=== PATIENT | male | born 1930 | race Hispanic/Latino ===

== ENCOUNTER 2017-10-03 12:32 | Emergency (ER) | payer OTHER ==
[~2017-10-03] VITALS: Ht 165.1 cm; Wt 72.6 kg
--- NOTE | 2017-10-03 15:02 | ED NEURO DEFICIT/STROKE ---
History of Present Illness General Chief Complaint: General Adult Stated Complaint: LEFT SIDE NUMBNESS HX OF STROKE X4 MONTHS AGO Source: patient, family, old records Exam Limitations: no limitations Allergies Coded Allergies: vancomycin (FLUSHING AND SWELLING 10/03/17) Reconcile Medications Atorvastatin Calcium 40 MG TABLET 1 TAB PO DAILY CHOLESTEROL (Reported) Bimatoprost (Lumigan) 0.01 % DROPS 1 GTT OU QPM BOTH EYES (Reported) Carvedilol 6.25 MG TABLET 1 TAB PO BID HEART/BP (Reported) Clopidogrel Bisulfate (Clopidogrel) 75 MG TABLET 1 TAB PO DAILY BLOOD THINNER (Reported) Dextran 70/Hypromellose (Artificial Tears) 1 EACH DROPERETTE 1 DROP OU AD PRN EYE LUBRICATION - BOTH EYES (Reported) Escitalopram Oxalate 10 MG TABLET 1 TAB PO DAILY MENTAL HEALTH (Reported) Famotidine (Pepcid AC) (Unknown Strength) TABLET (Unknown Dose) PO AD PRN GI (Reported) Multivit-Min/FA/Lycopen/Lutein (Centrum Silver Tablet) 0.4 MG-300 MCG-250 MCG TABLET 1 TAB PO DAILY SUPPLEMENT (Reported) Clifton-3 Fatty Acids (Clifton-3) (Unknown Strength) CAPSULE (Unknown Dose) PO DAILY SUPPLEMENT (Reported) Thiamine HCl (B-1) 100 MG TABLET 1 TAB PO DAILY SUPPLEMENT (Reported) Ubidecarenone (Co Q-10) (Unknown Strength) CAPSULE (Unknown Dose) PO DAILY SUPPLEMENT (Reported) Triage Note: PT STATES HE IS HAVING LEFT SIDED NUMBNESS FACE,NOSE,EAR LEG AND ARM. PT STATES HE IS ALSO HAVING BACK PAIN. PT STATES THIS ALL BEGAN ABOUT 4 WEEKS AGO. PT STATES HE JUST THOUGHT IT WOULD GO AWAY AND IT HASN'T YET. PT STATES THE NUMBNESS IS GETTING WORSE AND HE IS HAVING DIFFICULY WALKING. PT HAD [address] SCANS OVER THE PAST FEW WEEKS. PT HAD CT OF CHEST ON FRIDAY/. Triage Nurses Notes Reviewed? yes Onset: Gradual Duration: week(s): (4 months), changing over time, continues in ED Timing: multiple episodes today Severity: mild, moderate Altered Sensations: LUE, LLE, left facial Vision Problem? No Glaucoma? No Impaired Ability: walks without difficulty Baseline: alert, oriented x 3 Associated Symptoms: paresthesia HPI: 87 year old male hx of cva 4 months ago presents for eval of multiple complaints , he reports that since effie stroke he has had left sided weakness and left sided numbness/tinlgin that seems to be getting worse. he has been evaluated on multiple occasions for this with 2 head cts over thepast 2 months that did not show and new findings. he has also seen his pcp and neuro. he is aso reporting a remote hx of prostate ca and has been having left sided low back pain and left flank pain that radiates into his testccles for the past few weeks. no trauma. pain seems to be worse with movement. no meds for pain. currently 12/30. no urinary symptoms, fever, n/v, chest pain, sob, rash or any other symptoms. he has been evalauted by urology a few weeks ago for this and has another appt next week. mentak status is at baseline per family who is at bedside. (Irwin Mendiola) Vital Signs & Intake/Output Vital Signs & Intake/Output Vital Signs Date Time Temp Pulse Resp B/P B/P Pulse O2 O2 Flow FiO2 Mean Ox Delivery Rate 10/03 1809 76 18 150/87 96 Room Air 10/03 1305 97.2 60 16 119/71 96 Room Air ED Intake and Output 10/04 0000 10/03 1200 Intake Total Output Total 300 Balance -300 Output, Urine 300 Patient 160 lb Weight Weight Reported by Patient Measurement Method (Erica VELZE,Servando Moreno) Past History Travel History Traveled to [place] past 21 day No Medical History Any Pertinent Medical History? see below for history Neurological: CVA Cardiovascular: D-FIBULATOR/PACEMAKER BRADICARDIA Influenza Vaccine: 06/22/11 Surgical History Surgical History: none Psychosocial History Who do you live with Spouse What is your primary language Russian Tobacco Use: Quit >30 days ago ETOH Use: occasional use Illicit Drug Use: denies illicit drug use Family History Hx Contributory? No (Irwin Mendiola) Review of Systems Review of Systems Constitutional: Reports: no symptoms. EENTM: Reports: no symptoms. Respiratory: Reports: no symptoms. Cardiovascular: Reports: no symptoms. GI: Reports: abdominal pain. Genitourinary: Reports: no symptoms. Musculoskeletal: Reports: see HPI, back pain. Skin: Reports: no symptoms. Neurological/Psychological: Reports: numbness, paresthesia, pre-existing deficit, tingling, weakness. Hematologic/Endocrine: Reports: no symptoms. Immunologic/Allergic: Reports: no symptoms. All Other Systems: Reviewed and Negative (Irwin Mendiola) Physical Exam Physical Exam General Appearance: well developed/nourished, no apparent distress, alert, awake Head: atraumatic, normal appearance Eyes: Bilateral: normal appearance, PERRL, EOMI. Ears, Nose, Throat: normal ENT inspection, moist mucous membrane, hearing grossly normal Neck: normal inspection, supple, full range of motion Respiratory: normal breath sounds, chest non-tender, no respiratory distress, lungs clear Cardiovascular: regular rate/rhythm, normal peripheral pulses Peripheral Pulses: 2+ radial (R), 2+ radial (L) Gastrointestinal: normal bowel sounds, soft, no organomegaly, tenderness (left flank, llq) Back: normal inspection, normal range of motion, no vertebral tenderness, left lumbar paraspinous muscles tender to palpation no cvat Extremities: normal range of motion, pt is moving all extremities equally. strength 5/5 bilaterally. Psychiatric: awake, alert, oriented x 3 Cranial Nerves: normal hearing, normal speech, PERRL Coordination/Gait: normal finger to nose, normal gait Motor/Sensory: no motor/sensory deficits, sensory deficets are not appearant on exam. pt able to distinguish sharp/dull, Reflexes: 1+: knee (R), knee (L). Skin: intact, normal color, warm/dry Comments: male genitals: No lesions or swelling. no hernias. testicles tedner to palpation bilaterallty,. Core Measures CVA/TIA Diagnosis: No Sepsis Present: No Sepsis Focused Exam Completed? No (Irwin Mendiola) Progress Differential Diagnosis: Maldonado's Palsy, electrolyte imbalance, intracranial Hem., intracranial mass/tumor, migraine ESPINO, stroke, subarachnoid Hem., malignancy, kidney stones, diverticulitis Diagnostic Imaging: Viewed by Me: CT Scan, Ultrasound. Discussed w/RAD: CT Scan, Ultrasound. Radiology Impression: PATIENT: SCOTTY CADE PRESENT AGE: 87 PATIENT ACCOUNT NO: [id number] : 31 LOCATION: [facility] ORDERING PHYSICIAN: Irwin MUELLER SERVICE DATE: 10/03/17 EXAM TYPE: CAT - CT HEAD WO IV CONTRAST EXAMINATION: CT HEAD WITHOUT CONTRAST CLINICAL INFORMATION: History of CVA with left-sided deficits for 4 months. Worsening left-sided weakness and numbness. COMPARISON: CT head 09/01/2017, 07/25/2017. TECHNIQUE: Contiguous axial imaging was performed from the skull base to vertex without intravenous administration of contrast. DLP: 1619.8 mGy-cm FINDINGS: Large geographic infarct with encephalomalacia involving the right parietal lobe similar to prior CT study. No new infarct. No intracranial hemorrhage. There is atrophy with prominence of the ventricles and sulci. There is hypodensity of the periventricular white matter stable since prior study. Vascular wall calcification of the internal carotid arteries at the carotid artery siphon. IMPRESSION: Stable old right MCA territory infarct. No new infarct. No acute intracranial abnormality. DICTATED BY: Santosh Case MD DATE/TIME DICTATED:1837 TEAM ASSEMBLER:LIANET DATE/TIME TRANSCRIBED:10/03/171837 CONFIDENTIAL, DO NOT COPY WITHOUT APPROPRIATE AUTHORIZATION., PATIENT: SCOTTY CADE PRESENT AGE: 87 PATIENT ACCOUNT NO: [id number] : 31 LOCATION: [facility] ORDERING PHYSICIAN: Irwin MUELLER SERVICE DATE: 10/03/17 EXAM TYPE: CAT - CT ABD & PELVIS W IV CONTRAST EXAMINATION: CT ABDOMEN AND PELVIS WITH CONTRAST CLINICAL INFORMATION: Right flank pain radiating into groin and testicles for month. History of prostate cancer. COMPARISON: 01/03/2014 TECHNIQUE: Multidetector volumetric imaging was performed of the abdomen and pelvis following IV administration of 95 mL of Optiray 320 intravenous contrast. Sagittal and coronal reformatted images were obtained on the technologist's workstation. FINDINGS: LUNG BASES: Mild right basilar atelectasis. LIVER, GALLBLADDER, AND BILIARY TREE: There are foci of enhancement seen in the right and left lobe of the liver, reference image 10 series 2. This may be related to altered vascular flow. An enhancing lesion cannot be excluded. The gallbladder is unremarkable with no evidence of radiopaque gallstones, gallbladder wall thickening, or obvious pericholecystic inflammatory changes. PANCREAS: Unremarkable. There is a focus of air projected over the head of the pancreas region, which may be related to duodenal diverticulum. SPLEEN: Unremarkable. ADRENAL GLANDS: Unremarkable. KIDNEYS AND URETERS: The kidneys are normal in size, shape, and attenuation. No hydronephrosis, hydroureter, or calculi seen. No perinephric stranding. BLADDER: Bladder is slightly thick- walled, which may be related to degree of distention, correlate with urinalysis. GASTROINTESTINAL TRACT: Scattered colonic diverticuli. No findings to suggest acute diverticulitis. There are surgical clips present in the upper abdomen. No dilated small bowel loops are seen. The stomach is underdistended. Small hiatal hernia. The appendix is not identified. No pericecal inflammatory changes are seen. ABDOMINAL WALL: Small fat-containing left greater than right inguinal hernia. LYMPH NODES: No pathologically enlarged lymph nodes identified in the abdomen or pelvis. VASCULAR: Normal caliber aorta. PELVIC VISCERA: Prostate measures 3.7 cm, with foci of calcification. OSSEOUS STRUCTURES: Multilevel degenerative changes in the spine. There is anterior vertebral body height loss of L1, which appears chronic. Previous study sagittal reconstructions are not available for direct comparison. Small sclerotic focus in the right ischial tuberosity, stable from previous. No suspicious bony lesions otherwise identified. IMPRESSION: 1. Foci of enhancement in the right and left lobe of the liver, nonspecific, incompletely evaluated. This may be related to altered vascular flow/enhancement, but enhancing lesions cannot be excluded. Further evaluation with MRI can be obtained as clinically warranted. 2. Bilateral kidneys appear unremarkable. No evidence of calculi or hydronephrosis. 3. Bladder is slightly thick-walled, which may be related to underdistention, correlate with urinalysis. 4. No acute findings otherwise identified. 5. Anterior wedging of L1 vertebral body, suspected to be chronic, clinically correlate. 6. Additional findings and details in the body of the report. DICTATED BY: Dom Benito MD DATE/TIME DICTATED:10/03/171833 TEAM ASSEMBLER:LIANET DATE/TIME TRANSCRIBED:10/03/171833, PATIENT: SCOTTY CADE PRESENT AGE: 87 PATIENT ACCOUNT NO: [id number] : 31 LOCATION: [facility] ORDERING PHYSICIAN: Irwin MUELLER SERVICE DATE: 10/03/17 EXAM TYPE: US - US-TESTICULAR EXAMINATION: US SCROTUM CLINICAL INFORMATION: 87-year-old male presented with bilateral testicular tenderness for one month. COMPARISON: None TECHNIQUE: A sonogram of the scrotum was performed assessing soares-scale appearance and color Doppler flow. Spectral analysis and Doppler interrogation was performed. FINDINGS: RIGHT : Right testicle measures 3.5 x 1.7 x 2.0 cm, volume 8.45 mL. Parenchymal echotexture is normal. No focal testicular parenchymal lesions are visualized. Normal symmetric intratesticular flow is visualized. Right epididymal head is normal in size. No right varicocele is seen. Small hydrocele is present. LEFT: Left testicle measures 3.2 x 2.1 x 2.9 cm, volume 13.8 mL. Parenchymal echotexture is normal. No focal testicular parenchymal lesions are visualized. Normal symmetric intratesticular flow is visualized. 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 Left epididymal head is normal in size. No left varicocele is seen. Small hydrocele is present. IMPRESSION: 1. Sonographically unremarkable testicles (the right appears somewhat smaller as compared to the left side, may represent normal variation). 2. Sonographically unremarkable epididymis. 3. Bilateral small hydrocele. DICTATED BY: Paula Mcconnell MD DATE/TIME DICTATED:10/03/171652 TEAM ASSEMBLER:LIANET DATE/ TIME TRANSCRIBED:10/03/171652 CONFIDENTIAL, DO NOT COPY WITHOUT APPROPRIATE AUTHORIZATION. Initial ED EKG: a-v dual paced rhythm with some inhibition Comments: PATIENT: SCOTTY CADE PRESENT AGE: 87 PATIENT ACCOUNT NO: [id number] : 31 LOCATION: [facility] ORDERING PHYSICIAN: Irwin MUELLER SERVICE DATE: 10/03/17 EXAM TYPE: US - US-TESTICULAR EXAMINATION: US SCROTUM CLINICAL INFORMATION: 87-year-old male presented with bilateral testicular tenderness for one month. COMPARISON: None TECHNIQUE: A sonogram of the scrotum was performed assessing soares-scale appearance and color Doppler flow. Spectral analysis and Doppler interrogation was performed. FINDINGS: RIGHT: Right testicle measures 3.5 x 1.7 x 2.0 cm, volume 8.45 mL. Parenchymal echotexture is normal. No focal testicular parenchymal lesions are visualized. Normal symmetric intratesticular flow is visualized. Right epididymal head is normal in size. No right varicocele is seen. Small hydrocele is present. LEFT: Left testicle measures 3.2 x 2.1 x 2.9 cm, volume 13.8 mL. Parenchymal echotexture is normal. No focal testicular parenchymal lesions are visualized. Normal symmetric intratesticular flow is visualized. 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 Left epididymal head is normal in size. No left varicocele is seen. Small hydrocele is present. IMPRESSION: 1. Sonographically unremarkable testicles (the right appears somewhat smaller as compared to the left side, may represent normal variation). 2. Sonographically unremarkable epididymis. 3. Bilateral small hydrocele. DICTATED BY: Paula Mcconnell MD DATE/TIME DICTATED:10/03/171652 TEAM ASSEMBLER:LIANET DATE/TIME TRANSCRIBED:10/03/171652 CONFIDENTIAL, DO NOT COPY WITHOUT APPROPRIATE AUTHORIZATION. (Robby MUELLER,Irwin) Plan of Care: Orders Procedure Date/time Status URINALYSIS 10/03 151 Complete TROPONIN LEVEL 10/03 151 Complete MAGNESIUM 10/03 151 Complete COMPREHENSIVE METABOLIC PANEL 10/03 151 Complete CBC WITHOUT DIFFERENTIAL 10/03 151 Complete EKG 10/03 151 Active Laboratory Tests 10/03/17 1700: Anion Gap 15, Estimated GFR 57 L, BUN/Creatinine Ratio 9.2, Glucose 106 H, Calcium 9.3, Magnesium 2.1, Total Bilirubin 0.8, AST 54, ALT 47, Alkaline Phosphatase 85, Troponin I 0.02, Total Protein 7.5, Albumin 4.6, Globulin 2.9, Albumin/Globulin Ratio 1.6, CBC w Diff NO MAN DIFF REQ, RBC 4.64 L, MCV 95.0 H , MCH 30.9, RDW 13.2, MPV 9.4, Gran % 49.7, Lymphocytes % 21.8, Monocytes % 11.1 H, Eosinophils % 16.8 H, Basophils % 0.6, Absolute Granulocytes 3.2, Absolute Lymphocytes 1.4, Absolute Monocytes 0.7 H, Absolute Eosinophils 1.1, Absolute Basophils 0, PUBS MCHC 32.5 L 10/03/17 1630: Urine Color YEL, Urine Clarity CLEAR, Urine pH 6.5, Ur Specific Norman 1.020, Urine Protein TRACE H, Urine Ketones NEG, Urine Nitrite NEG, Urine Bilirubin NEG, Urine Urobilinogen 1.0, Ur Leukocyte Esterase NEG, Ur Microscopic SEDIMENT EXAMINED, Urine RBC RARE, Urine WBC 1-3 H, Ur Epithelial Cells RARE, Urine Bacteria RARE H, Urine Mucus FEW, Urine Hemoglobin NEG, Urine Glucose NEG pt seen and evalauted,. he has been having left sided weakness and numbness since his stroke that seems to be worsening. no acute changes. he is neurologically intact. strength and sensory supply equal bilaterlly. head ct is unchanged. ct abdomen and pelvis along with testicle u/s wnl. pt is feeling betetr after tylenol. adivsed rest, tylenol and follwo up with specialists neuro and urology and pcp. pt appearsd clincially well adn agrees with the plan. case discussed with dr maldonado he agrees. (Irwin Mendiola) (Erica VELEZ,Servando Moreno) Departure Departure Disposition: HOME OR SELF CARE Condition: Stable Clinical Impression Primary Impression: Numbness and tingling Secondary Impressions: Left flank pain Referrals: Dwight Maldonado DO (PCP/Family) Additional Instructions: Continue to take all medications as directed. Tylenol for pain. Follow-up with your neurologist and primary care doctor as soon as possible. Monitor symptoms return with any concerns. Departure Forms: Customer Survey General Discharge Information (Irwin Mendiola) PA/NEWSPAPER DELIVERY COUNSELOR Co-Sign Statement Statement: ED Attending supervision documentation- [] I saw and evaluated the patient. I have also reviewed all the pertinent lab results and diagnostic results. I agree with the findings and the plan of care as documented in the PA's/NEWSPAPER DELIVERY COUNSELOR's documentation. Patient presents for evaluation of progressive left upper extremity paresthesias and left flank pain that has been present for the past 3-4 weeks. Physical examination reveals a grossly nonfocal neurologic exam and no tenderness over the left flank or abdomen. [] I have reviewed the ED Record and agree with the PA's/NEWSPAPER DELIVERY COUNSELOR's documentation. [] Additions or exceptions (if any) to the PAs/NEWSPAPER DELIVERY COUNSELOR's note and plan are summarized below: [] (Erica VELEZ,Servando Moreno)
[2017-10-03] MEDS ORDERED: CARVEDILOL6.25 M1 PO (16:10)
[2017-10-03] MEDS ORDERED: ESCITALOPRAM OX10 MG PO (16:10)
[2017-10-03] MEDS ORDERED: CLOPIDOGREL75 M1 PO (16:10)
[2017-10-03] MEDS ORDERED: LUMIGAN2.5 ML OU (16:11)
[2017-10-03] MEDS ORDERED: ATORVASTATIN CA40 M1 PO (16:11)
[2017-10-03] MEDS ORDERED: ARTIFICIAL TEA1 EACH OU (16:12)
[2017-10-03] MEDS ORDERED: B-1100 MG PO (16:13)
[2017-10-03] MEDS ORDERED: CO Q-10200 MG PO (16:13)
[2017-10-03] MEDS ORDERED: OMEGA-31000 M1 PO (16:13)
[2017-10-03] MEDS ORDERED: PEPCID AC20 M2 PO (16:14)
[2017-10-03] MEDS ORDERED: CENTRUM SILVER1 EAC3 PO (16:14)
--- NOTE | 2017-10-03 17:06 | ULTRASOUND REPORT ---
EXAMINATION: US SCROTUM CLINICAL INFORMATION: 87-year-old male presented with bilateral testicular tenderness for one month. COMPARISON: None TECHNIQUE: A sonogram of the scrotum was performed assessing soares-scale appearance and color Doppler flow. Spectral analysis and Doppler interrogation was performed. FINDINGS: RIGHT: Right testicle measures 3.5 x 1.7 x 2.0 cm, volume 8.45 mL. Parenchymal echotexture is normal. No focal testicular parenchymal lesions are visualized. Normal symmetric intratesticular flow is visualized. Right epididymal head is normal in size. No right varicocele is seen. Small hydrocele is present. LEFT: Left testicle measures 3.2 x 2.1 x 2.9 cm, volume 13.8 mL. Parenchymal echotexture is normal. No focal testicular parenchymal lesions are visualized. Normal symmetric intratesticular flow is visualized. 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 Left epididymal head is normal in size. No left varicocele is seen. Small hydrocele is present. IMPRESSION: 1. Sonographically unremarkable testicles (the right appears somewhat smaller as compared to the left side, may represent normal variation). 2. Sonographically unremarkable epididymis. 3. Bilateral small hydrocele.
[2017-10-03 17:13] LABS: ABSOLUTE BASOPHIL COUNT 0 /CUMM (0.0-0.2); ABSOLUTE EOSINOPHIL COUNT 1.1 /CUMM (0.0-0.7); ABSOLUTE GRANULOCYTE CT 3.2 /CUMM (1.4-6.5); ABSOLUTE LYMPH COUNT 1.4 /CUMM (1.2-3.4); ABSOLUTE MONOCYTE COUNT 0.7 /CUMM (0.10-0.60); BASOPHIL % 0.6 % (0.0-2.0); GRANULOCYTE % 49.7 % (42.2-75.2); HEMATOCRIT 44.1 % (42-52); MEAN CORPUSCULAR HGB 30.9 PG (27.0-31.0); MEAN CORPUSCULAR HGB CONC 32.5 G/DL (33.0-37.0); MEAN PLATELET VOLUME 9.4 FL (7.4-10.4); PLATELET COUNT 143 /CUMM (130-400); RBC DISTRIBUTION WIDTH 13.2 % (11.5-14.5); RED BLOOD CELL CT 4.64 /CUMM (4.70-6.10); WHITE BLOOD CELL COUNT 6.5 /CUMM (4.8-10.8)
[2017-10-03 17:33] LABS: EOSINOPHIL % 16.8 % (0-5)
[2017-10-03 18:09] VITALS: BP 150/87
--- NOTE | 2017-10-03 18:44 | CT SCAN REPORT ---
EXAMINATION: CT HEAD WITHOUT CONTRAST CLINICAL INFORMATION: History of CVA with left-sided deficits for 4 months. Worsening left-sided weakness and numbness. COMPARISON: CT head 09/01/2017, 07/25/2017. TECHNIQUE: Contiguous axial imaging was performed from the skull base to vertex without intravenous administration of contrast. DLP: 1619.8 mGy-cm FINDINGS: Large geographic infarct with encephalomalacia involving the right parietal lobe similar to prior CT study. No new infarct. No intracranial hemorrhage. There is atrophy with prominence of the ventricles and sulci. There is hypodensity of the periventricular white matter stable since prior study. Vascular wall calcification of the internal carotid arteries at the carotid artery siphon. IMPRESSION: Stable old right MCA territory infarct. No new infarct. No acute intracranial abnormality.
--- NOTE | 2017-10-03 19:27 | CT SCAN REPORT ---
EXAMINATION: CT ABDOMEN AND PELVIS WITH CONTRAST CLINICAL INFORMATION: Right flank pain radiating into groin and testicles for month. History of prostate cancer. COMPARISON: 01/03/2014 TECHNIQUE: Multidetector volumetric imaging was performed of the abdomen and pelvis following IV administration of 95 mL of Optiray 320 intravenous contrast. Sagittal and coronal reformatted images were obtained on the technologist's workstation. FINDINGS: LUNG BASES: Mild right basilar atelectasis. LIVER, GALLBLADDER, AND BILIARY TREE: There are foci of enhancement seen in the right and left lobe of the liver, reference image 10 series 2. This may be related to altered vascular flow. An enhancing lesion cannot be excluded. The gallbladder is unremarkable with no evidence of radiopaque gallstones, gallbladder wall thickening, or obvious pericholecystic inflammatory changes. PANCREAS: Unremarkable. There is a focus of air projected over the head of the pancreas region, which may be related to duodenal diverticulum. SPLEEN: Unremarkable. ADRENAL GLANDS: Unremarkable. KIDNEYS AND URETERS: The kidneys are normal in size, shape, and attenuation. No hydronephrosis, hydroureter, or calculi seen. No perinephric stranding. BLADDER: Bladder is slightly thick-walled, which may be related to degree of distention, correlate with urinalysis. GASTROINTESTINAL TRACT: Scattered colonic diverticuli. No findings to suggest acute diverticulitis. There are surgical clips present in the upper abdomen. No dilated small bowel loops are seen. The stomach is underdistended. Small hiatal hernia. The appendix is not identified. No pericecal inflammatory changes are seen. ABDOMINAL WALL: Small fat-containing left greater than right inguinal hernia. LYMPH NODES: No pathologically enlarged lymph nodes identified in the abdomen or pelvis. VASCULAR: Normal caliber aorta. PELVIC VISCERA: Prostate measures 3.7 cm, with foci of calcification. OSSEOUS STRUCTURES: Multilevel degenerative changes in the spine. There is anterior vertebral body height loss of L1, which appears chronic. Previous study sagittal reconstructions are not available for direct comparison. Small sclerotic focus in the right ischial tuberosity, stable from previous. No suspicious bony lesions otherwise identified. IMPRESSION: 1. Foci of enhancement in the right and left lobe of the liver, nonspecific, incompletely evaluated. This may be related to altered vascular flow/enhancement, but enhancing lesions cannot be excluded. Further evaluation with MRI can be obtained as clinically warranted. 2. Bilateral kidneys appear unremarkable. No evidence of calculi or hydronephrosis. 3. Bladder is slightly thick-walled, which may be related to underdistention, correlate with urinalysis. 4. No acute findings otherwise identified. 5. Anterior wedging of L1 vertebral body, suspected to be chronic, clinically correlate. 6. Additional findings and details in the body of the report.
== END 2017-10-03 20:31 ==
LOC: ERH 12:32
PROVIDERS: Physician Assistant Medical
DX: R20.0 Anesthesia of skin (principal); R20.2 Paresthesia of skin; R10.9 Unspecified abdominal pain; M54.5 Low back pain; N50.819 Testicular pain, unspecified
CPT/HCPCS: 74177; 81001; 93005; 93010